=== PATIENT | male | born 1950 | race Caucasian/White ===

== ENCOUNTER 2016-12-20 16:51 | Emergency (ER) | payer MEDICARE, OTHER ==
[~2016-12-20] VITALS: Ht 167.6 cm; Wt 90.7 kg
[2016-12-20 17:36] VITALS: BP 175/75
== END 2016-12-20 19:16 | disposition home or self-care (01) ==
LOC: ER 16:53
DX: J20.9 Acute bronchitis, unspecified (principal); I10 Essential (primary) hypertension; J45.909 Unspecified asthma, uncomplicated; E03.9 Hypothyroidism, unspecified
CPT/HCPCS: 71010; 93005; 99284; A4606; Z7610